=== PATIENT | male | born 1980 | race Caucasian/White ===

== ENCOUNTER 2018-09-23 22:33 | Emergency (ER) | payer SELFPAY ==
[~2018-09-23] VITALS: Ht 188 cm; Wt 90.7 kg
[~2018-09-23 22:33] MED LIST: LEVE500T3 PO; PHE100C PO
[2018-09-23 22:41] VITALS: BP 143/99
[2018-09-24] MEDS ORDERED: cefTRIAXone SOD 1,000 MG VL IM ONE (01:15)
[2018-09-24] MEDS ORDERED: TETANUS-DIPTH-ACEL PERTUSSIS 0.5ML SYRG IM ONE (01:15)
== END 2018-09-24 01:23 | disposition home or self-care (01) ==
LOC: ER 22:40
DX: S61.251A Open bite of left index finger without damage to nail, initial encounter (principal); F17.210 Nicotine dependence, cigarettes, uncomplicated; F12.10 Cannabis abuse, uncomplicated; W50.3XXA Accidental bite by another person, initial encounter; Y93.89 Activity, other specified; Y99.8 Other external cause status; Y92.89 Other specified places as the place of occurrence of the external cause
CPT/HCPCS: 90471; 90715; 96372; 99283; J0696

== ENCOUNTER 2024-11-10 06:16 | Emergency (ER) | payer OTHER ==
[~2024-11-10] VITALS: Ht 188 cm; Wt 89.1 kg
[~2024-11-10 06:16] MED LIST changes: -PHE100C PO; +PHEN1CAP38 PO
[2024-11-10 07:11] VITALS: BP 137/101; PULSE 84; RESP 16; TEMP 98.4; O2SAT 97
--- NOTE | 2024-11-10 07:16 | ED.PDOC ---
Psychiatric HPI Comments 44 year old male presents to the ED with chief complaint of insomnia. Patient reports that he had a seizure on and since then, started to experience insomnia, being unable to sleep for the past 3 days. Patient relays that he wishes to have some medication to sleep. Patient states he takes his seizure medication daily. Patient denies any SI, HI, dizziness, headache, or N/V. Chief Complaint: Anxiety Time Seen by MD: 07:14 Primary Care Provider: ALVIN Reviewed Notes: Nurses Notes, Medications, Allergies Information Source: Patient Mode of Arrival: Ambulatory Severity: Able to Care for Self, Able to Control Self Severity of Pain: None Severity of Mental Status: Mild Severity of Symptoms: Mild Timing: Days Duration: Since onset Prehospital treatment: None Presents with: Other (Insomnia) Ingestion: None Circumstance: None Current substance abuse: None Stressors: None History of: None Past Medical History PAST MEDICAL HISTORY: Seizures Surgical History: Denies all surgeries Family History Family History: Unknown Social History Smoker: Cigarettes Alcohol: Occasionally Drugs: Marijuana Lives In: Home Constitutional: denies: chills, diaphoresis, fatigue, fever, malaise, sweats, weakness, others EENTM: denies: blurred vision, double vision, ear bleeding, ear discharge, ear drainage, ear pain, ear ringing, eye pain, eye redness, hearing loss, mouth pain, mouth swelling, nasal discharge, nose bleeding, nose congestion, nose pain, photophobia, tearing, throat pain, throat swelling, voice changes, others Respiratory: denies: cough, hemoptysis, orthopnea, SOB at rest, shortness of breath, SOB with excertion, stridor, wheezing, others Cardiovascular: denies: chest pain, dizzy spells, diaphoresis, Dyspnea on exertion, edema, irregular heart beat, left arm pain, lightheadedness, pa lpitations, PND, syncope, others Gastrointestinal: denies: abdomen distended, abdominal pain, blood streaked bowels, constipated, diarrhea, dysphagia, difficulty swallowing, hematemesis, melena, nausea, poor appetite, poor fluid intake, rectal bleeding, rectal pain, vomiting, others Genitourinary: denies: burning, dysuria, flank pain, frequency, hematuria, incontinence, penile discharge, penile sore, pain, testicle pain, testicle swelling, urgency, others Neurological: denies: dizziness, fainting, headache, left sided numbness, left sided weakness, numbness, paresthesia, pre-existing deficit, right sided numbness, right sided weakness, seizure, speech problems, tingling, tremors, weakness, others Musculoskeletal: denies: back pain, gout, joint pain, joint swelling, muscle pain, muscle stiffness, neck pain, others Integumetry: denies: bruises, change in color, change in hair/nails, dryness, laceration, lesions, lumps, rash, wounds, others Allergic/Immunocompromised: denies: Difficulty Healing, Frequent Infections, Hives, Itching, others Hematologic/Lymphatic: denies: anemia, blood clots, easy bleeding, easy br uising, swollen glands, others Endocrine: denies: excessive hunger, excessive sweating, excessive thirst, excessive urination, flushing, intolerance to cold, intolerance to heat, unexplained weight gain, unexplained weight loss, others Psychiatric: reports: sleepless; denies: anxiety, bipolar disorder, depression, hopeless, panic disorder, schizophrenia, suicidal, others All Other Systems: Reviewed and Negative Physical Exam General Appearance: Moderate Distress, Normal HEENT: Normal ENT Inspection, PERRL/EOMI Neck: Full Range of Motion, Non-Tender, Normal, Normal Inspection Respiratory: Chest Non-Tender, Lungs Clear, No Accessory Muscle Use, No Respiratory Distress, Normal Breath Sounds Cardiovascular: No Edema, No JVD, No Murmur, No Gallop, Normal Peripheral Pulses, Regular Rate/Rhythm Breast Exam: Deferred Gastrointestinal: No Organomegaly, Non Tender, No Pulsatile Mass, Normal Bowel Sounds, Soft Genitalia: Deferred Pelvic: Deferred Rectal: Deferred Extremities: No calf tenderness, Normal capillary refill, Normal inspection, Normal range of motion, Non-tender, No pedal edema Musculoskeletal : Apperance: Normal Neurologic: Alert, recreation adviser II-XII nml as Tested, No Motor Deficits, Normal Affect, Normal Mood, No Sensory Deficits Cerebellar Function: Normal Reflexes: Normal Skin: Dry, Normal Color, Warm Peripheral Pulses: 3+ Radial (R), 3+ Radial (L) Lymphatic: No Adenopathy Was a procedure done? Was a procedure done?: No Psych Differential Dx Psych. Differential Dx: Anxiety, Sleepless X-Ray, Labs, Meds, VS Vital Signs Date Time Temp Pulse Resp B/P (MAP) Pulse Ox O2 Delivery O2 Flow Rate FiO2 11/10/24 07:11 84 16 97 Room Air* 0 21 11/10/24 07:11 98.4 84 16 137/101 (113) 97 98.4 11/10/24 06:28 98.6 89 17 135/107 (116) 98 98.6 Patient alert. States that he is having hard time sleeping. History of seizures. Vitals stable. Answering questions. Ambulating without difficulty. No sign of any injury. He does have history of seizures. He does take his medications for seizure Was given prescription of Ativan. Explained to the patient. Was told to follow up with primary care physician. Was told to come back if there is any problem. Time of 1ST Reevaluation: 08:14 Reevaluation 1ST: Improved Patient Education/Counseling: Diagnosis, Treatment Family Education/Counseling: No Family Present Additional Information Previous visit documents reviewed: None The following tests were ordered, and results were reviewed by me: None Additional Information was gathered from interviewing the following independent historians: None I reviewed and agreed with the following test results read by other providers: None I discussed treatment and results with medical personnel and: Patient Comprehensive systems review obtained and negative except for what is stated in the HPI. Departure 1 Departure Time of Disposition: 07:18 Impression: Primary Impression: Seizure disorder Additional Impressions: Insomnia Qualified Codes: G47.00 - Insomnia, unspecified Anxiety Disposition: 01 HOME / SELF CARE / HOMELESS Condition: Good e-Prescriptions Lorazepam (ATIVAN TABLET) 0.5 Mg Tb 1 TAB PO BID for 5 Days, #10 TAB Prov: EDIE AGUILAR MD 11/10/24 Discharged With: Self Critical Care Note Critical Care Time?: No Stability Stability form required: No Heart Score Heart Score: Heart Score Response (Comments) Value History N/A 0 EKG N/A 0 Age N/A 0 Risk Factors N/A 0 Troponin N/A 0 Total 0 I personally scribed for EDIE AGUILAR MD ([email or web address]) on 11/10/24 at 07:16. Electronically submitted by Kieran Dubon ([email or web address]). EDIE AGUILAR MD Nov 10, 2024 07:16
[2024-11-10] MEDS ORDERED: LORA-1121 PO (07:20)
[2024-11-10] MEDS: LORazepam 0.5 MG TAB PO ONE (07:21)
[2024-11-10] MEDS: LORazepam 0.5 MG TAB ONE (07:21)
== END 2024-11-10 07:27 | disposition home or self-care (01) ==
LOC: ER 06:16
DX: G40.909 Epilepsy, unspecified, not intractable, without status epilepticus (principal); G47.00 Insomnia, unspecified; F41.9 Anxiety disorder, unspecified; F17.210 Nicotine dependence, cigarettes, uncomplicated